=== PATIENT | male | born 1990 | race African-American/Black ===

== ENCOUNTER 2016-07-16 01:29 | Emergency (ER) | payer SELFPAY ==
--- NOTE | 2016-07-16 02:09 | ER Document Report ---
ED General - General Chief Complaint: Possible Overdose Stated Complaint: POSSIBLE OVERDOSE Time seen by provider: 02:07 Mode of Arrival: Ambulatory Information source: Patient TRAVEL OUTSIDE OF THE [place] IN LAST 30 DAYS: No - HPI Patient complains to provider of: accidental overdose, tooth pain, nausea and vomiting Onset: Yesterday Onset/Duration: Gradual Quality of pain: Achy Severity: Moderate Pain Level: 3 Associated symptoms: Nausea, Vomiting Exacerbated by: Denies Relieved by: Denies Similar symptoms previously: No Recently seen / treated by doctor: No Notes: Patient is a 26-year-old male presenting to the emergency room complaining of accidental overdose, states she's been having some dental pain and throughout the last 24 hours he took 13-14 tablets of "headache tension pills", which he obtained from the [employer], he is not sure what the active ingredient in this medication is, he denies any suicidal ideation, states he was taking it to relieve his pain, throughout the day today he has developed some nausea and vomiting as well - Related Data Allergies/Adverse Reactions: No Known Allergies Allergy (Verified 03/30/14 15:47) Past Medical History - General Information source: Patient - Social History Smoking Status: Current Every Day Smoker Chew tobacco use (# tins/day): No Frequency of alcohol use: Rare Drug Abuse: None Family History: Reviewed & Not Pertinent Patient has suicidal ideation: No Patient has homicidal ideation: No Pulmonary Medical History: Reports: Hx Asthma, Hx COPD Renal/ Medical History: Denies: Hx Peritoneal Dialysis GI Medical History: Denies: Hx Gastroesophageal Reflux Disease Past Surgical History: Comment Only: Hx Tonsillectomy - adnoids - Immunizations Hx Diphtheria, Pertussis, Tetanus Vaccination: Yes Review of Systems - Review of Systems Constitutional: No symptoms reported EENT: Dental problem Cardiovascular: No symptoms reported Respiratory: No symptoms reported Gastrointestinal: See HPI Genitourinary: No symptoms reported Male Genitourinary: No symptoms reported Musculoskeletal: No symptoms reported Skin: No symptoms reported Hematologic/Lymphatic: No symptoms reported Neurological/Psychological: No symptoms reported -: Yes All other systems reviewed and negative Physical Exam - Vital signs Vitals: Temp Pulse Resp BP Pulse Ox 98.1 F 62 14 150/89 H 99 07/16/16 01:33 07/16/16 01:33 07/16/16 01:33 07/16/16 01:33 07/16/16 01:33 Interpretation: Normal - General General appearance: Appears well, Alert - HEENT Head: Normocephalic, Atraumatic Eyes: Normal Conjunctiva: Normal Extraocular movements intact: Yes Eyelashes: Normal Pupils: PERRL Mucous membranes: Normal Teeth diagram: 1 - Erythematous, swelling, poor dentition Pharynx: Normal Neck: Normal - Respiratory Respiratory status: No respiratory distress Chest status: Nontender Breath sounds: Normal Chest palpation: Normal - Cardiovascular Rhythm: Regular Heart sounds: Normal auscultation Murmur: No - Abdominal Inspection: Normal Distension: No distension Bowel sounds: Normal Tenderness: Nontender Organomegaly: No organomegaly - Back Back: Normal, Nontender - Extremities General upper extremity: Normal inspection, Nontender, Normal color, Normal ROM , Normal temperature General lower extremity: Normal inspection, Nontender, Normal color, Normal ROM , Normal temperature, Normal weight bearing. No: Caleb's sign - Neurological Neuro grossly intact: Yes Cognition: Normal Orientation: AAOx4 [place] Coma Scale Eye Opening: Spontaneous Evonne Coma Scale Verbal: Oriented [place] Coma Scale Motor: Obeys Commands Evonne Coma Scale Total: 15 Speech: Normal Motor strength normal: LUE, RUE, LLE, RLE Sensory: Normal - Psychological Associated symptoms: Normal affect, Normal mood - Skin Skin Temperature: Warm Skin Moisture: Dry Skin Color: Normal Course - Re-evaluation Re-evalutation: 07/16/16 02:33 Patient's family member brought in the pill bottle of the medications that he's been taking over the past 24 hours, the medication contains 500 mg of acetaminophen with 65mg caffeine, there are 19 missing from the bottle 07/16/16 05:34 Patient resting comfortably, reports feeling much better and ready to go home, he's been given to care providers in the emergency room, he is tolerating by mouth intake, he will be started on Pen-VK for his dental pain and infection, which should help with his low potassium as well, however I will put him on a small potassium supplement for a few days as well, hypokalemia is likely related to his vomiting today, he was advised to stop taking Tylenol as well as he was taking in excess over the last few days, he will be given information for follow-up with a dentist for further evaluation and treatment of his mouth pain, and advised to return if symptoms worsen, patient acknowledges understanding and agreement with this plan 07/16/16 06:11 Patient is resting comfortably, still continues to be nausea and vomiting free, second care rider is running, anticipate uneventful discharge once completed - Vital Signs Vital signs: Temp Pulse Resp BP Pulse Ox 98.1 F 62 16 140/94 H 97 07/16/16 01:33 07/16/16 01:33 07/16/16 06:01 07/16/16 06:01 07/16/16 06:01 - Laboratory Result Diagrams: 07/16/16 01:10 07/16/16 01:10 Laboratory results interpreted by me: 07/16/16 07/16/16 07/16/16 01:10 01:10 02:14 RDW 14.3 H Potassium 2.9 L* Urine Protein 30 H Urine Ketones 20 H Salicylates < 1.0 L - EKG Interpretation by [facility] EKG shows normal: Sinus rhythm Rate: Bradycardia When compared to previous EKG there are: No significant change Discharge - Discharge Clinical Impression: Dental infection, Hypokalemia Unintentional Tylenol overdose Qualifiers: Encounter type: initial encounter Qualified Code(s): T39.1X1A - Poisoning by 4- Aminophenol derivatives, accidental (unintentional), initial encounter Condition: Stable Disposition: HOME, SELF-CARE Instructions: Dentist, Dental Infection or Abscess ([facility]), Potassium ([facility]), Narcotic Abuse ([facility]) Additional Instructions: Follow up with your primary care provider and a dentist within the next 2-3 days. Stop taking Tylenol in excess amounts intake medications either prescribed or [id number] only as directed. Return to the emergency room immediately if symptoms worsen or any additional concerns. Prescriptions: Oxycodone HCl/Acetaminophen [Percocet 5-325 mg Tablet] 1 - 2 tab PO ASDIR PRN # 15 tablet PRN Reason: Penicillin V Potassium [Penicillin Vk 500 mg Tablet] 500 mg PO TID #30 tablet Potassium Chloride 20 meq PO DAILY #5 tablet.er
[2016-07-16 02:25] LABS: ABSOLUTE LYMPHOCYTES (AUTO) 2.6 10^3/uL (0.5-4.7); ABSOLUTE MONOCYTES (AUTO) 0.6 10^3/uL (0.1-1.4); BASOPHILS % (AUTO) 0.7 % (0-2); EOSINOPHILS % (AUTO) 0.4 % (0-6); HEMATOCRIT 46.8 % (37.9-51.0); HEMOGLOBIN 15.2 g/dL (13.5-17.0); HGB HCT DIFFERENCE -1.2; LYMPHOCYTES % (AUTO) 35.5 % (13-45); MEAN CORPUSCULAR HEMOGLOBIN 29.9 pg (27.0-33.4); MEAN CORPUSCULAR HGB CONC 32.5 g/dL (32.0-36.0); MEAN CORPUSCULAR VOLUME 92 fl (80-97); MONOCYTES % (AUTO) 8.3 % (3-13); RED BLOOD COUNT 5.09 10^6/uL (4.35-5.55); RED CELL DISTRIBUTION WIDTH 14.3 % (11.5-14.0); SEGMENTED NEUTROPHILS % (AUTO) 55.1 % (42-78); WHITE BLOOD COUNT 7.3 10^3/uL (4.0-10.5)
[2016-07-16 02:36] LABS: APPEARANCE,URINE SLIGHTLY-CLOUDY; BILIRUBIN,URINE NEGATIVE (NEGATIVE); GLUCOSE, URINE NEGATIVE (NEGATIVE); KETONES,URINE 20 mg/dL (NEGATIVE); LEUKOCYTE ESTERASE,URINE NEGATIVE (NEGATIVE); NITRITE,URINE NEGATIVE (NEGATIVE); PROTEIN,URINE 30 mg/dL (NEGATIVE); UROBILINOGEN,URINE NEGATIVE mg/dL (<2.0)
[2016-07-16 02:50] LABS: URINE BARBITURATES SCREEN NEGATIVE; URINE METHADONE SCREEN NEGATIVE; URINE OPIATES LOW NEGATIVE; URINE PHENCYCLIDINE SCREEN NEGATIVE
[2016-07-16] MEDS ORDERED: ONDANSETRON HCL INJ/PF 4 MG/2 ML SDV IV ONE (02:57)
[2016-07-16] MEDS ORDERED: NORMAL SALINE 1000 ML 1,000 ML IV PRN (02:57)
[2016-07-16 03:24] LABS: ALANINE AMINOTRANSFERASE 24 U/L (21-72); ALBUMIN 4.5 g/dL (3.5-5.0); ALKALINE PHOSPHATASE 82 U/L (38-126); ANION GAP 13 (5-19); ASPARTATE AMINO TRANSFERASE 58 U/L (17-59); BILIRUBIN,TOTAL 0.9 mg/dL (0.2-1.3); BLOOD UREA NITROGEN 11 mg/dL (7-20); CARBON DIOXIDE 28 mmol/L (22-30); CHLORIDE 103 mmol/L (98-107); CREATININE RESULT 1.02 mg/dL (0.52-1.25); GLUCOSE 108 mg/dL (75-110); TOTAL PROTEIN 8.2 g/dL (6.3-8.2)
[2016-07-16 03:25] LABS: ALCOHOL < 10 mg/dL (NONE DETECTED)
[2016-07-16 03:26] LABS: POTASSIUM 2.9 mmol/L (3.6-5.0)
[2016-07-16] MEDS: POTASSI CL 20 MEQ/50 ML RIDER 50 ML IV SCH ×2 (03:46→05:23)
[2016-07-16] MEDS ORDERED: MORPHINE SULFATE 10 MG/ML INJ IV ONE (03:47)
[2016-07-16] MEDS ORDERED: PENICILLIN V POTASSIUM 500 MG TABLET PO ONE (05:12)
[2016-07-16 07:37] VITALS: BP 146/97
--- NOTE | 2016-07-16 08:28 | EKG REPORT ---
SEVERITY:- ABNORMAL ECG - SINUS RHYTHM LEFT ATRIAL ABNORMALITY INCOMPLETE RIGHT BUNDLE BRANCH BLOCK LEFT VENTRICULAR HYPERTROPHY ST ELEV, PROBABLE NORMAL EARLY REPOL PATTERN : Confirmed by: Elida Malin 16-Jul-2016 08:27:27
== END 2016-07-16 07:44 | disposition home or self-care (01) ==
LOC: ER 01:29
DX: T39.1X1A Poisoning by 4-Aminophenol derivatives, accidental (unintentional), initial encounter (principal); K04.7 Periapical abscess without sinus; E87.6 Hypokalemia; F17.200 Nicotine dependence, unspecified, uncomplicated; J45.909 Unspecified asthma, uncomplicated; J44.9 Chronic obstructive pulmonary disease, unspecified
CPT/HCPCS: 93005; 99284; 96365; 96367; 36415; 80307 ×4; 85025; 80053; 81001; 93010; J2270; J2405; J3480; J7030

== ENCOUNTER 2018-03-21 02:55 | Emergency (ER) | payer OTHER ==
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
[2018-03-21] MEDS ORDERED: MORPHINE SULFATE 10 MG/ML INJ IV ONE (03:32)
[2018-03-21] MEDS ORDERED: ONDANSETRON HCL INJ/PF 4 MG/2 ML SDV IV ONE (03:32)
[2018-03-21] MEDS ORDERED: RINGERS SOLUTION,LACTATED 1,000 ML IV PRN (03:33)
[2018-03-21] MEDS ORDERED: SILVER SULFADIAZINE 1% CREAM 25 GM TP ONE ×2 (03:39→03:52)
[2018-03-21 04:18] VITALS: BP 118/67
== END 2018-03-21 04:15 | disposition left against medical advice (07) ==
LOC: ER 02:55
DX: T21.31XA Burn of third degree of chest wall, initial encounter (principal); T23.372A Burn of third degree of left wrist, initial encounter; X12.XXXA Contact with other hot fluids, initial encounter; Y93.89 Activity, other specified; Y92.009 Unspecified place in unspecified non-institutional (private) residence as the place of occurrence of the external cause; R20.0 Anesthesia of skin; F17.200 Nicotine dependence, unspecified, uncomplicated; J44.9 Chronic obstructive pulmonary disease, unspecified; Z53.29 Procedure and treatment not carried out because of patient's decision for other reasons
CPT/HCPCS: 99284

== ENCOUNTER 2018-03-21 05:53 | Emergency (ER) | payer OTHER ==
[2018-03-21] MEDS ORDERED: MORPHINE SULFATE 10 MG/ML INJ IV ONE (06:10)
[2018-03-21] MEDS ORDERED: ONDANSETRON HCL INJ/PF 4 MG/2 ML SDV IV ONE (06:10)
[2018-03-21] MEDS ORDERED: RINGERS SOLUTION,LACTATED 1,000 ML IV PRN (06:11)
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
[2018-03-21] MEDS ORDERED: OXYCODONE-ACETAMINOPHEN 5-325 MG TABLET PO ONE (11:38)
[2018-03-21] MEDS ORDERED: ONDANSETRON 4 MG TAB.RAPDIS PO ONE (11:55)
[2018-03-21] MEDS ORDERED: SILVER SULFADIAZINE 1% CREAM 50 GM TP ONE (12:06)
[2018-03-21 13:16] VITALS: BP 117/80
== END 2018-03-21 13:32 | disposition short-term general hospital (02) ==
LOC: ER 05:53
DX: T21.31XA Burn of third degree of chest wall, initial encounter (principal); T23.171A Burn of first degree of right wrist, initial encounter; X12.XXXA Contact with other hot fluids, initial encounter; R20.0 Anesthesia of skin; F17.200 Nicotine dependence, unspecified, uncomplicated; J44.9 Chronic obstructive pulmonary disease, unspecified
CPT/HCPCS: 99284; 96361; 96374; 96375; S0119; J2270; J2405; J7120; J3490

== ENCOUNTER 2020-04-26 12:38 | Emergency (ER) | payer SELFPAY ==
--- NOTE | 2020-04-26 14:49 | ER Document Report ---
ED Medical Screen (RME) - General Chief Complaint: Chest Pain Stated Complaint: CHEST PAIN Time Seen by Provider: 04/26/20 14:41 TRAVEL OUTSIDE OF THE [place] IN LAST 30 DAYS: No - HPI Notes: 04/26/20 14:46 29-year-old male with a history of asthma presents to the emergency room today with substernal chest pain that started around 6:00 this morning and has become progressively worse, reports pain is intermittent, sharp and radiates to his left arm. Denies any cardiac history. Reports his mother had a heart attack and a stroke, denies any cardiac or stroke in his father side. He smokes about half a pack a day for the last 9 years. Denies any nausea vomiting, abdominal pain, lower back pain, shortness of breath. Denies taking any everyday medications, does not follow with a primary care provider. I have greeted and performed a rapid initial assessment of this patient. A comprehensive ED assessment and evaluation of the patient, analysis of test results and completion of the medical decision making process will be conducted by additional ED providers. PHYSICAL EXAMINATION: GENERAL: Well-appearing, well-nourished and in no acute distress. CV: s1, s2 regular LUNGS: No respiratory distress - Related Data Allergies/Adverse Reactions: No Known Allergies Allergy (Verified 03/21/18 03:22) Past Medical History - Social History Frequency of alcohol use: None Drug Abuse: None Pulmonary Medical History: Reports: Hx Asthma, Hx COPD Renal/ Medical History: Denies: Hx Peritoneal Dialysis GI Medical History: Denies: Hx Gastroesophageal Reflux Disease Past Surgical History: Comment Only: Hx Tonsillectomy - adnoids - Immunizations Hx Diphtheria, Pertussis, Tetanus Vaccination: Yes Physical Exam - Vital signs Vitals: Temp Pulse Resp BP Pulse Ox 98.7 F 74 14 133/89 H 100 04/26/20 12:46 04/26/20 12:46 04/26/20 12:46 04/26/20 12:46 04/26/20 12:46 Course - Vital Signs Vital signs: Temp Pulse Resp BP Pulse Ox 98.7 F 74 14 133/89 H 100 04/26/20 12:46 04/26/20 12:46 04/26/20 12:46 04/26/20 12:46 04/26/20 12:46
--- NOTE | 2020-04-26 15:11 | RADIOLOGY REPORT (SQ) ---
EXAM DESCRIPTION: CHEST SINGLE VIEW IMAGES COMPLETED DATE/TIME: 04/26/2020 3:00 pm REASON FOR STUDY: chest pain COMPARISON: None. NUMBER OF VIEWS: One view. TECHNIQUE: Single frontal radiographic view of the chest acquired. LIMITATIONS: None. FINDINGS: LUNGS AND PLEURA: No opacities, masses or pneumothorax. No pleural effusion. MEDIASTINUM AND HILAR STRUCTURES: No masses. Contour normal. HEART AND VASCULAR STRUCTURES: Heart normal in size. Normal vasculature. BONES: No acute findings. HARDWARE: None in the chest. OTHER: No other significant finding. IMPRESSION: NO SIGNIFICANT RADIOGRAPHIC FINDING IN THE CHEST. TECHNICAL DOCUMENTATION: JOB ID: [id number] 2010 [employer]- All Rights Reserved Reading location - IP/workstation name: [email or web address]
--- OUTSIDE RECORDS SUMMARY | 2020-04-26 15:15 | XMS REPORT ---
:1990 Author Organization [facility] Address [facility] [place] [address] [place] [address] Care Team Providers Name Role Phone PCP, PER PATIENT Primary Care Physician Unavailable JESSE FRANCO Attending Clinician Unavailable JESSE FRANCO Admitting Clinician Unavailable Allergies, Adverse Reactions, Alerts This patient has no known allergies or adverse reactions. Medications Ordered Filled Start Stop Current Ordering Indication Dosage Frequency Signature Comments Components Medication Medication Date Date Medication? Clinician (SIG) Name Name oxyCODONE 2017-06 2018- No 10MG Take 1 Take 1 (ROXICODONE 0-11 10-16 tablet (10 tab let ) 10 mg 00:00: 23:59 mg total) (10 mg immediate 00 :00 by mouth total) by release every four mouth tablet (4) hours every as needed. four (4) for up to hours as 5 days needed. for up to 5 days Problems Condition Condition Condition Status Onset Resolution Last Treatin g Comments Name Details Category Date Date Treatment Clinician Date Problem Not on file Condition Procedures Procedure Date / Time Performed Performing Clinician Devic e ECHOCARDIOGRAM W COLORFLOW SPECTRAL 2018-03-24 08:37:31 Rachel Seth DOPPLER URINALYSIS 2018-03-22 13:40:00 Tracy Marroquin TOXICOLOGY SCREEN, URINE 2018-03-22 13:40:00 Tracy Marroquin BASIC METABOLIC PANEL 2018-03-22 04:41:00 Tracy Marroquin MAGNESIUM 2018-03-22 04:41:00 Tracy Marroquin PHOSPHORUS 2018-03-22 04:41:00 Tracy Marroquin CBC 2018-03-22 04:41:00 Tracy Marroquin ECG 12-LEAD 2018-03-21 17:21:59 Tracy Marroquin XR CHEST PA OR AP 2018-03-21 17:03:29 Cayla Mclain BASIC METABOLIC PANEL 2018-03-21 17:00:00 Tracy Marroquin HEPATIC FUNCTION PANEL 2018-03-21 17:00:00 Tracy Marroquin ETHANOL 2018-03-21 17:00:00 Tracy Marroquin AMYLASE 2018-03-21 17:00:00 Tracy Marroquin HEMOGLOBIN A1C 2018-03-21 17:00:00 Tracy Marroquin LIPASE 2018-03-21 17:00:00 Tracy Marroquin MAGNESIUM 2018-03-21 17:00:00 LopezTracy PHOSPHORUS 2018-03-21 17:00:00 LopezSamija TYPE AND SCREEN 2018-03-21 17:00:00 EjmaxTracy CBC 2018-03-21 17:00:00 LopezTracy PROTIME-INR 2018-03-21 17:00:00 EjmaxTracy APTT 2018-03-21 17:00:00 EjmaxTracy RECREATION THERAPY EVAL AND TREAT 2018-03-21 16:03:51 Smitha Marroquin Results Test Description Test Time Test Comments Text Results Atomic Results Result Comments Echocardiogram W Colorflow Spectral Doppler 2018-03-24 20:12:38 Test Item Value Reference Range Comments LV Diastolic Diameter PLAX (test code = LV Diastolic Diameter PL AX) 3.8 cm LV Systolic Diameter PLAX (test code = LV Systolic Diameter PLAX ) 3.1 cm IVS Diastolic Thickness (test code = IVS Diastolic Thickness) 1. 0 cm LVPW Diastolic Thickness (test code = LVPW Diastolic Thickness) 1.2 cm Aortic Root Diameter (test code = Aortic Root Diameter) 3.7 cm LA Systolic Diameter LX (test code = LA Systolic Diameter LX) 3. 6 cm LA Area 4C View (test code = LA Area 4C View) 14.7 cm2 LA Area 2C View (test code = LA Area 2C View) 14.7 cm2 LA Volume (test code = LA Volume) 42 cm3 AV Peak Velocity (test code = AV Peak Velocity) 1.1 m/s AV Peak Gradient (test code = AV Peak Gradient) 5.2 Mitral E Point Velocity (test code = Mitral E Point Velocity) 0. 0 m/s Mitral A Point Velocity (test code = Mitral A Point Velocity) 0. 0 m/s Mitral E to A Ratio (test code = Mitral E to A Ratio) 1.8 PV Peak Velocity (test code = PV Peak Velocity) 1.0 m/s PV peak gradient (test code = PV peak gradient) 3.82 mmHg Aorta at Sinuses Diameter (test code = Aorta at Sinuses Diameter ) 3.4 cm IVC Diameter Expiration (test code = IVC Diameter Expiration) 2 cm Toxicology Screen, [id number] 13:40:00 Test Item Value Reference Range Comments Amphetamine Screen, Ur (test code = Amphetamine <500 ng/mL Not Applicable Screen, Ur) Barbiturate Screen, Ur (test code = Barbiturate <200 ng/mL Not Applicable Screen, Ur) Benzodiazepine Screen, Urine (test code = <200 ng/mL Not Ap plicable Benzodiazepine Screen, Urine) Cannabinoid Scrn, Ur (test code = Cannabinoid =/>20 ng/mL No t Applicable Scrn, Ur) Methadone Screen, Urine (test code = Methadone <300 ng/mL N ot Applicable Screen, Urine) Cocaine(Metab.)Screen, Urine (test code = <150 ng/mL Not Ap plicable Cocaine(Metab.)Screen, Urine) Opiate Scrn, Ur (test code = Opiate Scrn, Ur) =/>300 ng/mL No t Applicable [id number] 13:40:00 Test Item Value Reference Range Comments Color, UA (test code = Color, UA) Yellow Clarity, UA (test code = Clarity, UA) Clear Specific Belle, UA (test code = Specific 1.025 1.003 -1.030 Belle, UA) pH, UA (test code = pH, UA) 6.5 5.0-9.0 Leukocyte Esterase, UA (test code = Leukocyte Trace Ne gative Esterase, UA) Nitrite, UA (test code = Nitrite, UA) Negative Negative Protein, UA (test code = Protein, UA) Trace Negative Glucose, UA (test code = Glucose, UA) Negative Negative Ketones, UA (test code = Ketones, UA) Negative Negative Urobilinogen, UA (test code = Urobilinogen, 2.0 mg/dL 0.2 mg/dL, 1.0 mg/dL UA) Bilirubin, UA (test code = Bilirubin, UA) Negative Negati ve Blood, UA (test code = Blood, UA) Negative Negative RBC, UA (test code = RBC, UA) 1 /HPF <3 /HPF WBC, UA (test code = WBC, UA) 6 /HPF <2 /HPF Squam Epithel, UA (test code = Squam Epithel, <1 0- 5 /HPF UA) Bacteria, UA (test code = Bacteria, UA) Rare None See n /HPF Mucus, UA (test code = Mucus, UA) Few None Seen /HPF XR Chest 1 [id number] 09:51:06XR Chest 1 view (03/21/2018 5:03 PM) Impressions Performed At As above [facility] Narrative Performed At EXAM: CHEST ONE VIEW DATE: 03/21/2018 5:03 PM DICTATED: 03/22/2018 9:51 AM INTERPRETATION LOCATION: [facility] CLINICAL INDICATION: 27 years old Male with OTHER-ASSESS ASPIRATION- COMPARISON: None TECHNIQUE: PortableAP view of the chest obtained at 1701 hours. FINDINGS: Pulmonary vascular redistribution with equalization of blood flow. No focal or diffuse confluent pulmonary disease. Negative for pleural effusion, lymphadenopathy, pneumothorax. Normal heart size. [facility] Procedure Note Interface, Rad Results In - 03/22/2018 9:51 AM EDT EXAM: CHEST ONE VIEW DATE: 03/21/2018 5:03 PM DICTATED: 03/22/2018 9:51 AM INTERPRETATION LOCATION: [facility] CLINICAL INDICATION: 27 years old Male with OTHER-ASSESS ASPIRATION- COMPARISON: None TECHNIQUE: Portable AP view of the chest obtained at 1701 hours. FINDINGS: Pulmonary vascular redistribution with equalization of blood flow. No focal or diffuse confluent pulmonary disease. Negative for pleural effusion, lymphadenopathy, pneumothorax. Normal heart size. IMPRESSION: As above Performing Organization Address City/State/Zipcode Phone Number [facility] [address] [facility]. [place], [place] [id number] 04:41:00 Test Item Value Reference Range Comments WBC (test code = WBC) 8.3 10*9/L 4.5- 11.0 10*9/L RBC (test code = RBC) 4.70 10*12/L 4.50- 5.90 10*12/L HGB (test code = HGB) 14.5 g/dL 13.5- 17.5 g/dL HCT (test code = HCT) 44.6 % 41.0- 53.0 % MCV (test code = MCV) 94.9 fL 80.0- 100.0 fL MCH (test code = MCH) 30.8 pg 26.0- 34.0 pg MCHC (test code = MCHC) 32.4 g/dL 31.0- 37.0 g/dL RDW (test code = RDW) 13.8 % 12.0- 15.0 % MPV (test code = MPV) 7.3 fL 7.0- 10.0 fL Platelet (test code = Platelet) 290 10*9/L 150- 440 10*9/L Basic Metabolic [id number] 04:41:00 Test Item Value Reference Range Comments Sodium (test code = Sodium) 137 mmol/L 135- 145 mmol/L Potassium (test code = Potassium) 3.5 mmol/L 3.5- 5.0 mmol/ L Chloride (test code = Chloride) 99 mmol/L 98- 107 mmol/L CO2 (test code = CO2) 29.0 mmol/L 22.0- 30.0 mmol/L BUN (test code = BUN) 14 mg/dL 7- 21 mg/dL Creatinine (test code = Creatinine) 0.84 mg/dL 0.70- 1.30 m g/dL BUN/Creatinine Ratio (test code = 17 BUN/Creatinine Ratio) EGFR MDRD Non Af Amer (test code = EGFR MDRD >=60 >=6 0 mL/min/1.73m2 Non Af Amer) EGFR MDRD Af Amer (test code = EGFR MDRD Af >=60 >=60 mL/min/1.73m2 Amer) Anion Gap (test code = Anion Gap) 9 mmol/L 9- 15 mmol/L Glucose (test code = Glucose) 89 mg/dL 65- 179 mg/dL Calcium (test code = Calcium) 8.8 mg/dL 8.5- 10.2 mg/dL Magnesium [id number] 04:41:00 Test Item Value Reference Range Comments Magnesium (test code = Magnesium) 2.0 mg/dL 1.6- 2.2 mg/dL Phosphorus [id number] 04:41:00 Test Item Value Reference Range Comments Phosphorus (test code = Phosphorus) 3.8 mg/dL 2.9- 4.7 mg/ dL ECG 12 [id number] 17:21:59 Test Item Value Reference Range Comments EKG Systolic BP (test code = EKG Systolic BP) EKG Diastolic BP (test code = EKG Diastolic BP) EKG Ventricular Rate (test code = EKG Ventricular 61 BPM Rate) EKG Atrial Rate (test code = EKG Atrial Rate) 61 BPM EKG P-R Interval (test code = EKG P-R Interval) 190 ms EKG QRS Duration (test code = EKG QRS Duration) 100 ms EKG Q-T Interval (test code = EKG Q-T Interval) 424 ms EKG QTC Calculation (test code = EKG QTC 426 ms Calculation) EKG Calculated P [place] (test code = EKG Calculated 86 degrees P [place]) EKG Calculated R [place] (test code = EKG Calculated 50 degrees R [place]) EKG Calculated T [place] (test code = EKG Calculated 16 degrees T [place]) [id number] 17:00:00 Test Item Value Reference Range Comments Alcohol, Ethyl (test code = Alcohol, Ethyl) <10.0 Unde fined mg/dL Type and [id number] 17:00:00 Test Item Value Reference Range Comments Check Type (test code = Check Type) Needed Type Check ABO Grouping (test code = ABO Grouping) O POS Antibody Screen (test code = Antibody NEG Screen) Hepatic Function [id number] 17:00:00 Test Item Value Reference Range Comments Albumin (test code = Albumin) 4.4 g/dL 3.5- 5.0 g/dL Total Protein (test code = Total Protein) 7.4 g/dL 6.5- 8 .3 g/dL Total Bilirubin (test code = Total Bilirubin) 1.2 mg/dL 0. 0- 1.2 mg/dL Bilirubin, Direct (test code = Bilirubin, 0.10 mg/dL 0.00- 0.40 mg/dL Direct) AST (test code = AST) 36 U/L 19- 55 U/L ALT (test code = ALT) 30 U/L 19- 72 U/L Alkaline Phosphatase (test code = Alkaline 76 U/L 38- 1 26 U/L Phosphatase) [id number] 17:00:00 Test Item Value Reference Range Comments PT (test code = PT) 12.1 sec 10.2- 12.8 sec INR (test code = INR) 1.06 [id number] 17:00:00 Test Item Value Reference Range Comments APTT (test code = APTT) 30.5 sec 27.7- 37.7 sec Heparin Correlation (test code = Heparin <0.2 Correlation) Amylase [id number] 17:00:00 Test Item Value Reference Range Comments Amylase (test code = Amylase) 64 U/L 30- 110 U/L Lipase [id number] 17:00:00 Test Item Value Reference Range Comments Lipase (test code = Lipase) 29 U/L 44- 232 U/L Hemoglobin [id number] 17:00:00 Test Item Value Reference Range Comments Hemoglobin A1C (test code = Hemoglobin A1C) 5.4 % 4.8- 5.6 % Estimated Average Glucose (test code = Estimated 108 mg/dL Average Glucose) [id number] 17:00:00 Test Item Value Reference Range Comments WBC (test code = WBC) 10.5 10*9/L 4.5- 11.0 10*9/L RBC (test code = RBC) 4.82 10*12/L 4.50- 5.90 10*12/L HGB (test code = HGB) 14.9 g/dL 13.5- 17.5 g/dL HCT (test code = HCT) 46.0 % 41.0- 53.0 % MCV (test code = MCV) 95.4 fL 80.0- 100.0 fL MCH (test code = MCH) 30.8 pg 26.0- 34.0 pg MCHC (test code = MCHC) 32.3 g/dL 31.0- 37.0 g/dL RDW (test code = RDW) 13.9 % 12.0- 15.0 % MPV (test code = MPV) 7.4 fL 7.0- 10.0 fL Platelet (test code = Platelet) 316 10*9/L 150- 440 10*9/L Basic Metabolic [id number] 17:00:00 Test Item Value Reference Range Comments Sodium (test code = Sodium) 140 mmol/L 135- 145 mmol/L Potassium (test code = Potassium) 3.4 mmol/L 3.5- 5.0 mmol/ L Chloride (test code = Chloride) 97 mmol/L 98- 107 mmol/L CO2 (test code = CO2) 32.0 mmol/L 22.0- 30.0 mmol/L BUN (test code = BUN) 13 mg/dL 7- 21 mg/dL Creatinine (test code = Creatinine) 0.87 mg/dL 0.70- 1.30 m g/dL BUN/Creatinine Ratio (test code = 15 BUN/Creatinine Ratio) EGFR MDRD Non Af Amer (test code = EGFR MDRD >=60 >=6 0 mL/min/1.73m2 Non Af Amer) EGFR MDRD Af Amer (test code = EGFR MDRD Af >=60 >=60 mL/min/1.73m2 Amer) Anion Gap (test code = Anion Gap) 11 mmol/L 9- 15 mmol/L Glucose (test code = Glucose) 79 mg/dL 65- 179 mg/dL Calcium (test code = Calcium) 9.6 mg/dL 8.5- 10.2 mg/dL Magnesium [id number] 17:00:00 Test Item Value Reference Range Comments Magnesium (test code = Magnesium) 2.3 mg/dL 1.6- 2.2 mg/dL Phosphorus [id number] 17:00:00 Test Item Value Reference Range Comments Phosphorus (test code = Phosphorus) 3.4 mg/dL 2.9- 4.7 mg/ dL Encounters Start End Encounter Admission Attending Care Care Encounter ID Date/Time Date/Time Type Type Clinicians Facility Department 2018-03-25 Inpatient [facility] [id number] 00:00:00 [id number] 2018-03-24 Inpatient ER [facility] [id number] 08:12:33 [id number] 2018-03-[id number] 00:00:00 [id number] 2018-03-21 Inpatient ER [facility] [id number] 9_[id number] 07:06:00 SUGEY [id number] 2018-03-21 Inpatient ER [facility] [id number] 00:00:00 [id number] 2018-04-03 2018-04-03 [facility] [id number] 00:00:00 23:59:00 [id number] 2018-03-21 2018-03-27 [facility] [id number] 16:10:00 14:08:45 SUGEY [id number] 2018-03-21 2018-03-27 Inpatient [facility] [id number] 16:10:00 14:08:45 2018-03-21 2018-03-21 Inpatient [facility] [id number] 16:53:22 23:59:00 [id number] Payers Payer Name Policy Type Policy Number Effective Date Expiration D [id number] 2018 00:00:00 [employer] Plan of Treatment Planned Activity Planned Date Details Comments Future Scheduled Test [code = ] Future Scheduled Test [code = ] Social History Social Habit Start Date Stop Date Comments History of tobacco use 2006-03-21 00:00:00 Sex Assigned At Tobacco smoking status NHIS 2018-03-26 00:00:00 2018-03-26 00:00 :00 Cigarettes smoked current (pack per 2018-03-26 00:00:00 00:00:00 day) - Reported Cigarette pack-years 2018-03-26 00:00:00 2018-03-26 00:00:00 Vital Signs Vital Name Observation Time Observation Value Comments SYSTOLIC BLOOD PRESSURE 2018-03-27 07:00:00 136 mm[Hg] DIASTOLIC BLOOD PRESSURE 2018-03-27 07:00:00 80 mm[Hg] HEART RATE 2018-03-27 07:00:00 60 /min BODY TEMPERATURE 2018-03-27 07:00:00 36.61 [place] RESPIRATORY RATE 2018-03-27 07:00:00 18 /min OXYGEN SATURATION 2018-03-27 07:00:00 99 % WEIGHT 2018-03-24 07:40:00 59.376 kg HEIGHT 2018-03-21 17:16:00 167.6 cm
[2020-04-26 15:36] LABS: ABSOLUTE BASOPHILS # (AUTO) 0.1 10^3/uL (0.0-0.2); ABSOLUTE EOSINOPHILS # (AUTO) 0.1 10^3/uL (0.0-0.6); ABSOLUTE LYMPHOCYTES (AUTO) 3.1 10^3/uL (0.5-4.7); ABSOLUTE MONOCYTES (AUTO) 0.6 10^3/uL (0.1-1.4); BASOPHILS % (AUTO) 1.1 % (0-2); HEMATOCRIT 46.1 % (37.9-51.0); HEMOGLOBIN 15.5 g/dL (13.5-17.0); LYMPHOCYTES % (AUTO) 44.6 % (13-45); MEAN CORPUSCULAR HEMOGLOBIN 30.9 pg (27.0-33.4); MEAN CORPUSCULAR HGB CONC 33.7 g/dL (32.0-36.0); MEAN CORPUSCULAR VOLUME 92 fl (80-97); MONOCYTES % (AUTO) 8.7 % (3-13); PLATELET COUNT 262 10^3/uL (150-450); RED BLOOD COUNT 5.03 10^6/uL (4.35-5.55); RED CELL DISTRIBUTION WIDTH 14.1 % (11.5-14.0); SEGMENTED NEUTROPHILS % (AUTO) 43.6 % (42-78); TOTAL CELLS COUNTED % (AUTO) 100 %; WHITE BLOOD COUNT 6.9 10^3/uL (4.0-10.5)
[2020-04-26 15:53] LABS: ALBUMIN 4.8 g/dL (3.5-5.0); ALKALINE PHOSPHATASE 69 U/L (38-126); ANION GAP 7 (5-19); ASPARTATE AMINO TRANSFERASE 30 U/L (17-59); BILIRUBIN,DIRECT 0.1 mg/dL (0.0-0.4); BILIRUBIN,TOTAL 0.5 mg/dL (0.2-1.3); BLOOD UREA NITROGEN 9 mg/dL (7-20); CALCIUM 10.3 mg/dL (8.4-10.2); CARBON DIOXIDE 29 mmol/L (22-30); CHLORIDE 103 mmol/L (98-107); CREATINE KINASE 251 U/L (55-170); GLUCOSE 85 mg/dL (75-110); POTASSIUM 4.9 mmol/L (3.6-5.0); TOTAL PROTEIN 7.9 g/dL (6.3-8.2)
[2020-04-26 16:12] LABS: CREATINE KINASE MB 2.22 ng/mL (<4.55)
[2020-04-26 16:14] LABS: TROPONIN I < 0.012 ng/mL
--- NOTE | 2020-04-26 17:18 | EKG REPORT ---
SEVERITY:- ABNORMAL ECG - SINUS RHYTHM PROBABLE LEFT ATRIAL ABNORMALITY LEFT VENTRICULAR HYPERTROPHY ST ELEV, PROBABLE NORMAL EARLY REPOL PATTERN : Confirmed by: Elida Malin 26-Apr-2020 17:18:13
[2020-04-26] MEDS ORDERED: ACETAMINOPHEN 325 MG TABLET PO ONE (21:35)
[2020-04-26] MEDS ORDERED: METOPROLOL TARTRATE PF/INJ 5 MG/5 ML SDV IV ONE (22:11)
--- NOTE | 2020-04-26 23:30 | RADIOLOGY REPORT (SQ) ---
EXAM DESCRIPTION: CTA CHEST RadLex: CT CHEST ANGIOGRAPHY WITHOUT THEN WITH IV CONTRAST CLINICAL HISTORY: 29 years Male; CP left side; TECHNIQUE: CT angiogram of the chest using intravenous contrast. MIP reconstructions were performed. All CT scans at this facility use dose modulation, iterative reconstruction, and/or weight based dosing when appropriate to reduce radiation dose to as low as reasonably achievable. COMPARISON: None. FINDINGS: Pulmonary arteries: No filling defects in the central pulmonary arteries. Lungs: Lungs are clear. No pneumothorax or pleural effusion. Mediastinum:No mediastinal mass or adenopathy. Mediastinal vascular structures are unremarkable. Bones:No acute bone findings. IMPRESSION: 1. No CT evidence for pulmonary embolism. 2. No acute pulmonary findings.
--- NOTE | 2020-04-27 02:03 | ER Document Report ---
ED General - General Chief Complaint: Chest Pain Stated Complaint: CHEST PAIN Time Seen by Provider: 04/26/20 14:41 Primary Care Provider: LAVERNE VICENTE MD [ACTIVE STAFF] - Follow up as needed Mode of Arrival: Ambulatory Information source: Patient Notes: Patient is a 29-year-old male comes the emergency room complaining of left anterior chest pain. Patient states it started slightly when he woke up this morning around 6:15 AM before going to work. 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 Patient denies any past medical history. Patient states that pain started as stated around 6:15 AM this morning it progressively got slightly more intense up before noon time and asked what brought him to the emergency room. His boss brought him to the emergency room and dropped him off. Patient has a no past medical history currently on no medication does state that he has a family history of heart problems with a 29-year-old brother 1 year younger than him that had a heart attack and a mother that started with heart conditions in her 40s. Patient's only other contributing factor is that he does smoke half a pack of cigarettes a day. Denies alcohol or narcotics. TRAVEL OUTSIDE OF THE [place] IN LAST 30 DAYS: No - HPI Onset: This morning Onset/Duration: Gradual, Better Quality of pain: Achy Severity: Moderate Pain Level: 3 Associated symptoms: Chest pain. denies: Shortness of breath Exacerbated by: Denies Relieved by: Denies Similar symptoms previously: No Recently seen / treated by doctor: No - Related Data Allergies/Adverse Reactions: No Known Allergies Allergy (Verified 03/21/18 03:22) Past Medical History - General Information source: Patient, Relative - Social History Smoking Status: Current Some Day Smoker Cigarette use (# per day): Yes - Half pack a day Chew tobacco use (# tins/day): No Smoking Education Provided: Yes Frequency of alcohol use: None Drug Abuse: None Lives with: Family Family History: Reviewed & Not Pertinent Patient has suicidal ideation: No Pulmonary Medical History: Reports: Hx Asthma, Hx COPD Renal/ Medical History: Denies: Hx Peritoneal Dialysis GI Medical History: Denies: Hx Gastroesophageal Reflux Disease Past Surgical History: Comment Only: Hx Tonsillectomy - adnoids - Immunizations Hx Diphtheria, Pertussis, Tetanus Vaccination: Yes Review of Systems - Review of Systems Constitutional: No symptoms reported EENT: No symptoms reported Cardiovascular: See HPI, Chest pain Respiratory: No symptoms reported Gastrointestinal: No symptoms reported Genitourinary: No symptoms reported Male Genitourinary: No symptoms reported Musculoskeletal: No symptoms reported Skin: No symptoms reported Hematologic/Lymphatic: No symptoms reported Neurological/Psychological: No symptoms reported -: Yes All other systems reviewed and negative Physical Exam - Vital signs Vitals: Temp Pulse Resp BP Pulse Ox 98.7 F 74 14 133/89 H 100 04/26/20 12:46 04/26/20 12:46 04/26/20 12:46 04/26/20 12:46 04/26/20 12:46 Interpretation: Hypotensive, Bradycardic - Notes Notes: PHYSICAL EXAMINATION: GENERAL: Well-appearing, well-nourished and in no acute distress. HEAD: Atraumatic, normocephalic. EYES: Pupils equal round and reactive to light, extraocular movements intact, sclera anicteric, conjunctiva are normal. ENT: Nares patent, oropharynx clear without exudates. Moist mucous membranes. NECK: Normal range of motion, supple without lymphadenopathy LUNGS: Auscultation patient's lungs show bilateral breath sounds increased clear to auscultation no rhonchi rales or wheeze. Further examination patient anterior chest does show some mild reproducible tenderness against resistance in the upper extremities as well as to palpation around the left anterior lateral ribs. When pressure is applied on deep inspiration patient has no pain. HEART: Bradycardic rate and rhythm without murmurs ABDOMEN: Soft, nontender, nondistended abdomen. No guarding, no rebound. No masses appreciated. Musculoskeletal: Normal range of motion, no pitting or edema. No cyanosis. NEUROLOGICAL: . Normal speech, normal gait. Normal sensory, motor exams PSYCH: Normal mood, normal affect. SKIN: Warm, Dry, normal turgor, no rashes or lesions noted. Course - Re-evaluation Re-evalutation: 04/27/20 02:04 Patient's extensive course here has been secondary to giving her room as well as getting CT done. And then patient had the leg is slightly in his 2nd draw 1st troponin. Patient is currently pain-free. His chest x-ray and CTA were negative for blood clot. Patient 2nd troponin also came back negative. And he is feeling much better. Patient currently does not have a director council on aging or a primary care provider. And his only comorbidities were that he does smoke a pack is here today and family history. His heart score was only one. Patient has very healthy-appearing he is not overweight. Given these findings and patient is not wanting to have any admissions. I will given the name of the director council on aging on-call tonight his EKGs are stable and have them contact them tomorrow for follow-up. Also have social work instructor\Case management contact them tomorrow for possible intervention. - Vital Signs Vital signs: Temp Pulse Resp BP Pulse Ox 98.2 F 58 L 14 129/88 H 99 04/27/20 00:40 04/27/20 00:40 04/27/20 02:00 04/27/20 01:01 04/27/20 02:00 - Laboratory Result Diagrams: 04/26/20 15:22 04/26/20 15:22 Laboratory results interpreted by me: 04/26/20 04/26/20 15:22 15:22 RDW 14.1 H Calcium 10.3 H Creatine Kinase 251 H - Diagnostic Test Radiology reviewed: Reports reviewed - EKG Interpretation by Dc EKG shows normal: Sinus rhythm Rate: Normal Rhythm: NSR Additional EKG results interpreted by me: 04/27/20 02:17 Borderline left ventricular hypertrophy/possible early repolarization. No acute findings on EKG. This was evaluated by emergency room physician. Discharge - Discharge Clinical Impression: Chest pain, atypical Hypertension Qualifiers: Hypertension type: unspecified Qualified Code(s): I10 - Essential (primary) hypertension Condition: Stable Disposition: HOME, SELF-CARE Instructions: Angina Episode ([facility]), Chest Wall Pain ([facility]), Chest Pain of Unclear Cause ([facility]) Additional Instructions: As we discussed the only abnormalities we could find was you have a slightly elevated blood pressure. Your cardiac enzymes ruled out after [address] of your chest was negative for blood clot or any other acute findings. However given that you have a heart score of one and given it that you have a family history I am giving you the name of the director council on aging on-call today. I want you to give his office a call tomorrow and set up an appointment to see him. As we have discussed blood pressure can be a killer in a silent one. This is something you need to get under control now and monitor closely. Here relatively healthy gentleman you need to stop smoking as well. But that is the other lecture I gave you earlier. I am currently not starting you on any medications because your blood pressure currently is much better. And this is something needs to be followed by director council on aging or primary care provider. I am also given your name to the case management for follow-up tomorrow to make sure that you have adequate follow-up. If you should get more short of breath or you should have increasing chest pain you must return to ER for reevaluation. Forms: Elevated Blood Pressure, Smoking Cessation Education, Return to Work Referrals: LAVERNE VICENTE MD [ACTIVE STAFF] - Follow up as needed
[2020-04-27 02:19] VITALS: BP 129/88
== END 2020-04-27 02:26 | disposition home or self-care (01) ==
LOC: ER 12:38
DX: R07.89 Other chest pain (principal); R00.1 Bradycardia, unspecified; I10 Essential (primary) hypertension; J44.9 Chronic obstructive pulmonary disease, unspecified; F17.210 Nicotine dependence, cigarettes, uncomplicated; Z82.49 Family history of ischemic heart disease and other diseases of the circulatory system
CPT/HCPCS: 36415; 71045; 71275; 80053; 82550; 82553; 84484; 85025; 93005; 93010; 99285